=== PATIENT | female | born 1965 | race Caucasian/White ===

== ENCOUNTER → 2020-08-06 10:36 | Outpatient (BNVA) | payer OTHER, SELFPAY | PROVIDERS: Visit Provider Physician Assistant | DX: Z76.89 Persons encountering health services in other specified circumstances (principal) ==

== ENCOUNTER → 2020-08-25 08:21 | Outpatient (BNVA) | payer OTHER, SELFPAY | PROVIDERS: PCP Internal Medicine; Visit Provider Physician Assistant | DX: Z76.89 Persons encountering health services in other specified circumstances (principal) ==

== ENCOUNTER → 2020-09-22 08:22 | Outpatient (BNVA) | payer OTHER, SELFPAY | PROVIDERS: PCP Internal Medicine; Visit Provider Dietitian, Registered | DX: Z76.89 Persons encountering health services in other specified circumstances (principal) ==

== ENCOUNTER 2020-09-22 09:43 | Outpatient (REF) | payer OTHER, SELFPAY ==
[2020-09-22 11:31] LABS: MANUAL DIFF FLAG NO
[2020-09-22 11:38] LABS: Estimated Average Glucose 100 mg/dL; Hemoglobin A1c % 5.1 %
[2020-09-22 11:42] LABS: Basophils Percent Auto 0.5 % (0-2); Eosinophils Absolute Auto 0.1 X10*3/uL (0.0-0.4); Eosinophils Percent Auto 2.3 % (0-4); Hematocrit 44.2 % (37-47); Imm Gran Abs Auto 0.02 X10*3/uL (0.00-0.03); Imm Gran Pct Auto 0.3 % (0.0-0.4); Lymphocytes Percent Auto 33.8 % (20-40); Mean Corpuscular HGB Conc 33.9 g/dl (31.0-35.0); Mean Corpuscular Hemoglobin 29.2 pg (27.0-33.0); Mean Platelet Volume 10.3 fL (9.4-12.3); Monocytes Absolute Auto 0.4 X10*3/uL (0.1-1.2); Monocytes Percent Auto 6.2 % (2-11); Neutrophils Absolute Auto 3.4 X10*3/uL (2.0-8.3); Neutrophils Percent Auto 56.9 % (45-73); Platelet Count 234 X10*3/uL (160-400); Red Blood Count 5.14 X10*6/uL (4.20-5.50); Red Cell Distribution Width 12.6 % (11.0-16.0)
[2020-09-22 12:11] LABS: C Reactive Protein 0.16 mg/dL (< or = 0.50); Cholesterol 207 mg/dL; HDL Cholesterol 46 mg/dL; Iron 82 mcg/dL (30-160); LDL Cholesterol Calculated 127 mg/dl; Percent Iron Saturation 24 % (15-50); Total Iron Binding Capacity 341 mcg/dL (228-428); Triglycerides 173 mg/dL; Unsaturated Iron Binding 259 ug/dL
[2020-09-22 12:12] LABS: Ferritin 359 ng/mL (10-250); TSH reflex Free T4 0.64 mIU/mL (0.32-4.0); Vitamin D 25-OH Total 37.5 ng/mL (>30)
[2020-09-22 12:28] LABS: Folate 10.7 ng/mL (> or = 4.0); Vitamin B12 389 pg/mL (200-900)
[2020-09-23 18:57] LABS: Calcium (PTHI) 9.9 mg/dL (8.6-10.4); PTHI 33 pg/mL (14-64)
[2020-09-25 07:32] LABS: Zinc 100 mcg/dL (60-130)
[2020-09-26 12:03] LABS: Vitamin B1 8 nmol/L (8-30)
[2020-09-28 22:14] LABS: Vitamin A 57 mcg/dL (38-98)
== END 2020-09-22 09:44 | disposition home or self-care (01) ==
LOC: HO.LAB 09:43
PROVIDERS: PCP Internal Medicine; Visit Provider Physician Assistant
DX: E66.3 Overweight (principal); Z98.84 Bariatric surgery status; Z68.35 Body mass index [BMI] 35.0-35.9, adult; M32.9 Systemic lupus erythematosus, unspecified
CPT/HCPCS: 36415; 80061; 82306; 82607; 82728; 82746; 83036; 83525; 83540; 83970; 84425; 84443; 84590; 84630; 85025; 86140

== ENCOUNTER → 2020-10-27 08:34 | Outpatient (BNVA) | payer OTHER, SELFPAY | PROVIDERS: PCP Internal Medicine; Visit Provider Physician Assistant | DX: Z76.89 Persons encountering health services in other specified circumstances (principal) ==

== ENCOUNTER → 2020-11-24 08:26 | Outpatient (BNVA) | payer OTHER, SELFPAY | PROVIDERS: PCP Internal Medicine; Visit Provider Physician Assistant ==

== ENCOUNTER → 2020-11-26 08:56 | Outpatient (BNVA) | payer OTHER, SELFPAY | PROVIDERS: PCP Internal Medicine; Visit Provider Physician Assistant ==

== ENCOUNTER → 2021-01-05 08:55 | Outpatient (BNVA) | payer OTHER, SELFPAY | PROVIDERS: PCP Internal Medicine; Visit Provider Physician Assistant ==

== ENCOUNTER → 2021-01-07 08:13 | Outpatient (BNVA) | payer OTHER, SELFPAY | PROVIDERS: PCP Internal Medicine; Visit Provider Physician Assistant ==

== ENCOUNTER → 2021-01-21 08:13 | Outpatient (BNVA) | payer OTHER, SELFPAY | PROVIDERS: PCP Internal Medicine; Visit Provider Surgery ==

== ENCOUNTER 2021-01-26 11:35 | Outpatient (REF) | payer OTHER, SELFPAY ==
--- NOTE | ~2021-01-26 | XR_ITS ---
EXAMINATION: XR CHEST CLINICAL INFORMATION: Diabetes COMPARISON: None TECHNIQUE: 2 views of the chest were obtained. FINDINGS: The cardiac and mediastinal contours are normal. The lungs are clear. There is no pleural effusion or pneumothorax. There are degenerative changes of the spine. XR/XR chest 2V IMPRESSION: No evidence for acute disease in the chest.
--- NOTE | 2021-01-26 11:44 | ECG_ITS ---
Test Reason : TYPE II DIABETES Blood Pressure : / mmHG Vent. Rate : 064 BPM Atrial Rate : 064 BPM P-R Int : 178 ms QRS Dur : 092 ms QT Int : 416 ms P-R-T Axes : 023 021 026 degrees QTc Int : 429 ms Normal sinus rhythm Normal ECG No previous ECGs available Referred By: Dung Hayes Electronically Signed By:HILARIA ANDREWS MD
[2021-01-26 18:09] LABS: Alanine Aminotransferase 17 U/L (0-31); Albumin Level 4.8 g/dL (3.5-5.0); Alkaline Phosphatase 66 U/L (39-117); Anion Gap 13 (12-20); Aspartate Amino Transferase 14 U/L (5-31); Bilirubin Total 0.6 mg/dL (0.0-1.0); Blood Urea Nitrogen 18 mg/dL (9-16); Calcium 9.8 mg/dL (8.4-10.2); Carbon Dioxide 27 mmol/L (22-29); Chloride 104 mmol/L (96-108); Estimated Glomerular Filt Rate > 60; Glucose Random 115 mg/dL (60-115); Potassium 4.3 mmol/L (3.3-5.1); Sodium 140 mmol/L (135-145); Total Protein 8.1 g/dL (6.5-8.0)
== END 2021-01-26 11:36 | disposition home or self-care (01) ==
LOC: HO.LAB 11:35
PROVIDERS: PCP Internal Medicine; Visit Provider Surgery
DX: E11.9 Type 2 diabetes mellitus without complications (principal); E66.9 Obesity, unspecified; I10 Essential (primary) hypertension
CPT/HCPCS: 36415; 71046; 80053; 93005

== ENCOUNTER 2021-02-02 09:02 | Outpatient (REF) | payer OTHER, SELFPAY ==
[2021-02-03 13:56] LABS: H Pylori Breath Test NOT DETECTED (NOT DETECTED)
== END 2021-02-02 09:03 | disposition home or self-care (01) ==
LOC: HO.LNP 09:02
PROVIDERS: Surgery; PCP Internal Medicine; Visit Provider Physician Assistant
DX: A04.8 Other specified bacterial intestinal infections (principal); E11.9 Type 2 diabetes mellitus without complications; E66.9 Obesity, unspecified; I10 Essential (primary) hypertension
CPT/HCPCS: 83013

== ENCOUNTER 2021-02-16 07:52 | Outpatient (REF) | payer OTHER, SELFPAY ==
--- NOTE | ~2021-02-16 | US_ITS ---
EXAMINATION: US COMPLETE ABDOMEN WITH LIVER ELASTOGRAPHY CLINICAL INFORMATION: Diabetes COMPARISON: None. TECHNIQUE: Real-time imaging of the abdominal viscera. Noninvasive ultrasound liver fibrosis assessment is performed using Gregor ElastPQ point quantification shear wave elastography (pSWE) with a C5-2 MHz transducer. Multiple elastography samples are obtained. FINDINGS: PANCREAS: Normal. ABDOMINAL AORTA: The proximal, middle, and distal aortic segments are normal in caliber. INFERIOR VENA CAVA: Visualized portions are normal. LIVER: The echotexture is slightly increased probably representing fatty infiltration. No focal liver lesion is seen. The liver is normal in size and contour. There is no intrahepatic biliary duct dilatation. The right lobe measures 16.3 cm in length. The left lobe measures 9.5 cm in length. Portal flow is normal/hepatopedal. Shear wave liver elastography median stiffness is 2 m/s (reference: normal median stiffness is 1.3 m/s or less). IQR/median stiffness to assess sampling precision is 0.18 (reference: good quality data set is IQR/median stiffness of 0.15 or less). GALLBLADDER: Surgically removed. COMMON BILE DUCT: Normal in caliber measuring 0.2 cm in diameter. RIGHT KIDNEY: Normal. No hydronephrosis. No renal calculi or focal parenchymal lesions. The kidney measures 11.2 cm in maximum dimension. LEFT KIDNEY: Normal. No hydronephrosis. No renal calculi or focal parenchymal lesions. The kidney measures 10.8 cm in maximum dimension. SPLEEN: Normal. The spleen measures 10.3 cm in maximum dimension. FREE FLUID: None. US/US abdomen comp w elastography IMPRESSION: 1. Impression: Echogenic liver probably representing fatty infiltration. 2. Liver elastography: Limited due to due to sampling error. Liver stiffness is slightly elevated. REFERENCE: Society of Radiologists in Ultrasound Liver Stiffness Thresholds (2020): LIVER STIFFNESS THRESHOLDS: *Liver Stiffness equal or less than 1.3 m/s: High probability of being normal. *Liver Stiffness less than 1.7 m/s: In the absence of other known clinical signs, rules out compensated advanced chronic liver disease. *Liver Stiffness 1.7-2.1 m/s: Suggestive of compensated advanced chronic liver disease but need further test for confirmation. *Liver Stiffness over 2.1 m/s: Rules in compensated advanced chronic liver disease. *Liver Stiffness over 2.4 m/s: Suggestive of clinically significant portal hypertension. QUALITY OF DATA SET: *IQR/Median value equal or less than 0.15 implies a quality data set. *IQR/Median value over 0.15 implies a poor quality data set. SIGNIFICANT CHANGE FROM PRIOR EXAM: Significant change if liver stiffness measurement is 10% or greater from prior exam. OTHER CONSIDERATIONS: The stage of liver fibrosis may be overestimated in the setting of acute hepatitis, liver inflammation, elevated liver function tests, hepatic vascular congestion, obstructive cholestasis, non-fasting state, and infiltrative diseases such as amyloidosis and lymphoma. In some patients with NAFLD, the liver stiffness thresholds for compensated advanced chronic liver disease may be lower. In causes other than viral hepatitis and NAFLD, liver stiffness thresholds are not well established.
--- NOTE | ~2021-02-16 | FL_ITS ---
EXAMINATION: XR GI SERIES CLINICAL INFORMATION: Type 2 diabetes without complication. COMPARISON: None TECHNIQUE: The patient was given effervescent granules mixed with water which were followed by thick and thin preparations of barium for double contrast evaluation. FINDINGS: The esophageal mucosal pattern is normal. No hiatal hernia identified. The gastric rugal folds and duodenal bulb and sweep appear normal. No reflux was elicited during the examination. FLUOROSCOPY TIME: 1.7 minutes. DAP: 22.18 uGy-m2 (microgray-meter squared) FL/FL upper GI series IMPRESSION: Normal study.
== END 2021-02-16 07:53 | disposition home or self-care (01) ==
LOC: HO.US 07:52
PROVIDERS: Visit Provider Surgery
DX: Z01.818 Encounter for other preprocedural examination (principal); E66.01 Morbid (severe) obesity due to excess calories; Z68.32 Body mass index [BMI] 32.0-32.9, adult; K21.9 Gastro-esophageal reflux disease without esophagitis; E11.9 Type 2 diabetes mellitus without complications; I10 Essential (primary) hypertension; Z71.3 Dietary counseling and surveillance
CPT/HCPCS: 74240; 76705; 76981

== ENCOUNTER → 2021-02-25 08:44 | Outpatient (BNVA) | payer OTHER, SELFPAY | PROVIDERS: PCP Internal Medicine; Visit Provider Dietitian, Registered | DX: E66.9 Obesity, unspecified (principal); Z68.32 Body mass index [BMI] 32.0-32.9, adult | CPT/HCPCS: 97803 ==

== ENCOUNTER → 2021-03-09 08:12 | Outpatient (BNVA) | payer OTHER, SELFPAY | PROVIDERS: PCP Internal Medicine; Visit Provider Surgery ==

== ENCOUNTER → 2021-04-07 07:51 | Outpatient (BNVA) | payer OTHER, SELFPAY | PROVIDERS: PCP Internal Medicine; Visit Provider Surgery ==

== ENCOUNTER → 2021-04-08 12:55 | Outpatient (BNVA) | payer OTHER, SELFPAY | PROVIDERS: PCP Internal Medicine; Referring Provider Internal Medicine; Visit Provider Physician Assistant ==

== ENCOUNTER 2021-04-23 08:26 | Outpatient (REF) | payer OTHER, SELFPAY ==
[2021-04-23 09:30] LABS: Free T4 (Free Thyroxine) 0.92 ng/dL (0.71-1.85); Thyroid Stimulating Hormone 0.35 uIU/mL (0.32-4.0)
[2021-04-24 03:37] LABS: Triiodothyronine T3 Free 2.5 pg/mL (2.3-4.2); Triiodothyronine T3 Total 88 ng/dL (76-181)
[2021-04-26 22:02] LABS: Thyroglobulin Antibody <1 IU/mL (<=1); Thyroglobulin Level 12.8 ng/mL
[2021-04-27 09:42] LABS: Thyroglobulin Antibodies <1 IU/mL (< or = 1); Thyroid Peroxidase Antibodies <1 IU/mL (<9)
[2021-04-27 12:06] LABS: Thyrotropin Receptor Antibody <1.00 IU/L (<=2.00)
[2021-04-27 15:27] LABS: Thyroid Stimulating Immunoglob <89 % baseline (<140)
[2021-05-02 03:12] LABS: Thyroxine Binding Globulin 29.2 mcg/mL (13.5-30.9)
== END 2021-04-23 08:27 | disposition home or self-care (01) ==
LOC: HO.LAB 08:26
PROVIDERS: PCP Internal Medicine; Visit Provider Surgery
DX: E05.90 Thyrotoxicosis, unspecified without thyrotoxic crisis or storm (principal)
CPT/HCPCS: 36415; 83520; 84432; 84439; 84442; 84443; 84445; 84480; 84481; 86376; 86800

== ENCOUNTER 2021-04-26 07:04 | Inpatient (IN) | payer OTHER, SELFPAY ==
[2021-04-08 11:53] VITALS: BP 163/84; PULSE 78; RESP 20; O2SAT 99; BMI 31.6
--- NOTE | 2021-04-08 12:40 | P.CONAN_ITS ---
Documented by User: Susan Redmond 04/22/21 13:30 HPI - Anesthesia Eval Consult details Narrative: 56yo F for Gastric Sleeve PMFSH Active Problems Active Problems: All Active Problems (Updated 04/08/21 @ 12:27 by Stella Noble) Vascular insufficiency (Acute) BMI over 35 (Acute) Adjustment disorder, unspecified (Acute) BMI 32.0-32.9,adult (Acute) BMI 31.0-31.9,adult (Acute) Obesity (Acute) Hypertension (Acute) Diabetes mellitus (Acute) Past Medical History Medical History COVID-19 vaccine series completed Diabetes mellitus Hypertension Obesity Family History Family History Father AAA (abdominal aortic aneurysm) Stroke Aortic valve replaced Mother Narcolepsy Lung cancer Breast cancer DM (diabetes mellitus) Sister HTN (hypertension) Obese Sister DM (diabetes mellitus) HTN (hypertension) Obese Family history of problems with anesthesia: No Surgical History Surgical History History of surgery on right wrist Hx laparoscopic cholecystectomy History of Problems with Anesthesia: No Social History Social History Are you a primary career technical counselor to a significant other at home: No Do you presently have visiting nurse or other home services: No Alcohol intake: current Patient Tobacco Use Status: Former Tobacco user Quit Date: 2008 Tobacco use type: Cigarette Narrative Narrative: No recent illness. >4 mets with regular exercise - 4 miles Meds Allergies Allergy/AdvReac Type Severity Reaction Status Date / Time No Known Allergies Allergy Verified 04/08/21 15:33 Home Medications Medication Instructions Recorded Confirmed Last Taken Type cholecalciferol (vitamin D3) 25 25 mcg PO DAILY 08/06/20 04/08/21 Unknown History mcg (1,000 unit) capsule lisinopril 20 mg tablet 20 mg PO DAILY 04/07/21 04/08/21 Unknown History Exam Exam Date and Time: April 08, 2021 1240 Height,Weight and Vital Signs: Height 5 ft 8 in Weight 94.347 kg Last Vital Signs Pulse 78 04/08/21 11:53 Resp 20 04/08/21 11:53 BP 163/84 H 04/08/21 11:53 Pulse Ox 99 04/08/21 11:53 Airway Mallampati Class: I TM Dist: >3cm Neck ROM: Full Denture: Upper Loose/Missing/Broken Teeth: Yes (Lower molars) Heart: RRR Lungs: CTAB Assessment and Plan Assessment Anesthesia Assessment: Anesthesia Plan Discussed and PAT Visit Documented by User: Cami Winston 04/26/21 07:29 PMFSH Past Medical History Medical History COVID-19 vaccine series completed Diabetes mellitus Hypertension Obesity Family History Family History Father AAA (abdominal aortic aneurysm) Stroke Aortic valve replaced Mother Narcolepsy Lung cancer Breast cancer DM (diabetes mellitus) Sister HTN (hypertension) Obese Sister DM (diabetes mellitus) HTN (hypertension) Obese Surgical History Surgical History History of surgery on right wrist Hx laparoscopic cholecystectomy Social History Social History Are you a primary career technical counselor to a significant other at home: No Do you presently have visiting nurse or other home services: No Alcohol intake: current Patient Tobacco Use Status: Former Tobacco user Quit Date: 2008 Tobacco use type: Cigarette Meds Allergies Allergy/AdvReac Type Severity Reaction Status Date / Time No Known Allergies Allergy Verified 04/08/21 15:33 Home Medications Medication Instructions Recorded Confirmed Last Taken Type cholecalciferol (vitamin D3) 25 25 mcg PO DAILY 08/06/20 04/08/21 Unknown History mcg (1,000 unit) capsule lisinopril 20 mg tablet 20 mg PO DAILY 04/07/21 04/08/21 Unknown History Exam Height,Weight and Vital Signs: Vital Signs Temp Pulse Resp BP Pulse Ox 04/26/21 06:25 97.2 F 67 18 139/70 97 Pertinent Lab Results Pertinent Lab Results: Lab Results 04/21/21 04/21/21 04/21/21 Range/Units 09:50 09:50 09:50 WBC 5.1 (4.8-10.8) X10*3/uL RBC 4.76 (4.20-5.50) X10*6/uL Hgb 14.0 (12.0-16.0) g/dl Hct 40.6 (37-47) % MCV 85.3 (80-98) fL MCH 29.4 (27.0-33.0) pg MCHC 34.5 (31.0-35.0) g/dl RDW 13.2 (11.0-16.0) % Plt Count 196 (160-400) X10*3/uL MPV 9.8 (9.4-12.3) fL Immature Gran % (Auto) 0.2 (0.0-0.4) % Neut % (Auto) 59.1 (45-73) % Lymph % (Auto) 30.8 (20-40) % Garvin % (Auto) 8.1 (2-11) % Eos % (Auto) 1.4 (0-4) % Baso % (Auto) 0.4 (0-2) % Lymph # (Auto) 1.6 (1.2-4.9) X10*3/uL Garvin # (Auto) 0.4 (0.1-1.2) X10*3/uL Eos # (Auto) 0.1 (0.0-0.4) X10*3/uL Baso # (Auto) 0.0 (0.0-0.2) X10*3/uL Abs Immat Gran (auto) 0.01 (0.00-0.03) X10*3/uL Absolute Neuts (auto) 3.0 (2.0-8.3) X10*3/uL Absolute Nucleated RBC 0.000 (0.0-0.012) X10*3/uL Nucleated RBC % (auto) 0.0 (0.0-0.2) /100WBC PT 13.5 H (10.8-13.0) SEC INR 1.1 (0.9-1.1) APTT 35.9 (24.1-38.0) SEC Sodium 140 (135-145) mmol/L Potassium 5.0 (3.3-5.1) mmol/L Chloride 105 (96-108) mmol/L Carbon Dioxide 28 (22-29) mmol/L Anion Gap 12 (12-20) BUN 13 (9-16) mg/dL Creatinine 0.73 (0.5-1.4) mg/dL Estim Creat Clear Calc 105.7 Estimated GFR > 60 Random Glucose 92 (60-115) mg/dL Estimat Average Glucose mg/dL Hemoglobin A1c % % Total Insulin uIU/mL Calcium 9.5 (8.4-10.2) mg/dL Total Bilirubin 1.1 H (0.0-1.0) mg/dL AST 17 (5-31) U/L ALT 13 (0-31) U/L Alkaline Phosphatase 51 D (39-117) U/L C-Reactive Protein 0.09 (< or = 0.50) mg/dL Total Protein 6.7 (6.5-8.0) g/dL Albumin 4.1 (3.5-5.0) g/dL Triglycerides 61 mg/dL Cholesterol 150 D mg/dL LDL Cholesterol, Calc 93 mg/dl HDL Cholesterol 45 mg/dL TSH 0.22 L (0.32-4.0) uIU/mL Free T4 0.93 (0.71-1.85) ng/dL Blood Type Antibody Screen 04/21/21 04/21/21 04/21/21 Range/Units 09:50 09:50 09:50 WBC (4.8-10.8) X10*3/uL RBC (4.20-5.50) X10*6/uL Hgb (12.0-16.0) g/dl Hct (37-47) % MCV (80-98) fL MCH (27.0-33.0) pg MCHC (31.0-35.0) g/dl RDW (11.0-16.0) % Plt Count (160-400) X10*3/uL MPV (9.4-12.3) fL Immature Gran % (Auto) (0.0-0.4) % Neut % (Auto) (45-73) % Lymph % (Auto) (20-40) % Garvin % (Auto) (2-11) % Eos % (Auto) (0-4) % Baso % (Auto) (0-2) % Lymph # (Auto) (1.2-4.9) X10*3/uL Garvin # (Auto) (0.1-1.2) X10*3/uL Eos # (Auto) (0.0-0.4) X10*3/uL Baso # (Auto) (0.0-0.2) X10*3/uL Abs Immat Gran (auto) (0.00-0.03) X10*3/uL Absolute Neuts (auto) (2.0-8.3) X10*3/uL Absolute Nucleated RBC (0.0-0.012) X10*3/uL Nucleated RBC % (auto) (0.0-0.2) /100WBC PT (10.8-13.0) SEC INR (0.9-1.1) APTT (24.1-38.0) SEC Sodium (135-145) mmol/L Potassium (3.3-5.1) mmol/L Chloride (96-108) mmol/L Carbon Dioxide (22-29) mmol/L Anion Gap (12-20) BUN (9-16) mg/dL Creatinine (0.5-1.4) mg/dL Estim Creat Clear Calc Estimated GFR Random Glucose (60-115) mg/dL Estimat Average Glucose 85 mg/dL Hemoglobin A1c % 4.6 % Total Insulin 3.9 uIU/mL Calcium (8.4-10.2) mg/dL Total Bilirubin (0.0-1.0) mg/dL AST (5-31) U/L ALT (0-31) U/L Alkaline Phosphatase (39-117) U/L C-Reactive Protein (< or = 0.50) mg/dL Total Protein (6.5-8.0) g/dL Albumin (3.5-5.0) g/dL Triglycerides mg/dL Cholesterol mg/dL LDL Cholesterol, Calc mg/dl HDL Cholesterol mg/dL TSH (0.32-4.0) uIU/mL Free T4 (0.71-1.85) ng/dL Blood Type O Positive Antibody Screen NEGATIVE Laboratory Results - last 24 hr 04/26/21 06:10 COVID-19 ([facility]) Negative COVID-19 Clin Com See Note CXR (: FINDINGS: The cardiac and mediastinal contours are normal. The lungs are clear. There is no pleural effusion or pneumothorax. There are degenerative changes of the spine. EKG (01/26/21): Normal sinus rhythm 64.Normal ECG Airway Mallampati Class: I TM Dist: >3cm Neck ROM: Full Denture: Upper Loose/Missing/Broken Teeth: Yes (Molars bottom) Heart: RRR Lungs: CTAB Assessment and Plan Assessment Anesthesia Assessment: Anesthesia Plan Discussed and Chart Reviewed Final Anesthetic Review NPO: Yes ASA Class: III Final Preanesthetic Review: No Changes in Pt Med Stat, Meds/Allgs Chart Reviewed, Consent Obtained/Reviewed and Anes Risks/Benef Reviewed Patient Risk: Intermediate Procedure Risk: Intermediate Assessment/Block/Sedation in SS: Assess/Block/Sedation-SS Anesthetic Plan Anesthetic Plan: GA Disposition: Inp. Admit - Standard Bed
[2021-04-21 10:26] LABS: MANUAL DIFF FLAG NO
[2021-04-21 10:31] LABS: Basophils Percent Auto 0.4 % (0-2); Eosinophils Absolute Auto 0.1 X10*3/uL (0.0-0.4); Eosinophils Percent Auto 1.4 % (0-4); Hematocrit 40.6 % (37-47); Imm Gran Abs Auto 0.01 X10*3/uL (0.00-0.03); Imm Gran Pct Auto 0.2 % (0.0-0.4); Lymphocytes Absolute Auto 1.6 X10*3/uL (1.2-4.9); Lymphocytes Percent Auto 30.8 % (20-40); Mean Corpuscular HGB Conc 34.5 g/dl (31.0-35.0); Mean Corpuscular Hemoglobin 29.4 pg (27.0-33.0); Mean Corpuscular Volume 85.3 fL (80-98); Mean Platelet Volume 9.8 fL (9.4-12.3); Monocytes Absolute Auto 0.4 X10*3/uL (0.1-1.2); Monocytes Percent Auto 8.1 % (2-11); Neutrophils Percent Auto 59.1 % (45-73); Platelet Count 196 X10*3/uL (160-400); Red Blood Count 4.76 X10*6/uL (4.20-5.50); Red Cell Distribution Width 13.2 % (11.0-16.0); White Blood Count 5.1 X10*3/uL (4.8-10.8)
[2021-04-21 10:35] LABS: INTERNATIONAL NORM RATIO 1.1 (0.9-1.1); Prothrombin Time 13.5 SEC (10.8-13.0)
[2021-04-21 10:38] LABS: Partial Thromboplastin Time 35.9 SEC (24.1-38.0)
[2021-04-21 11:01] LABS: Estimated Average Glucose 85 mg/dL; Hemoglobin A1c % 4.6 %
[2021-04-21 11:23] LABS: Alanine Aminotransferase 13 U/L (0-31); Albumin Level 4.1 g/dL (3.5-5.0); Alkaline Phosphatase 51 U/L (39-117); Anion Gap 12 (12-20); Aspartate Amino Transferase 17 U/L (5-31); Bilirubin Total 1.1 mg/dL (0.0-1.0); Blood Urea Nitrogen 13 mg/dL (9-16); C Reactive Protein 0.09 mg/dL (< or = 0.50); Calcium 9.5 mg/dL (8.4-10.2); Carbon Dioxide 28 mmol/L (22-29); Chloride 105 mmol/L (96-108); Cholesterol 150 mg/dL; Creatinine Clr Calc Pharmacy 105.7; Estimated Glomerular Filt Rate > 60; Glucose Random 92 mg/dL (60-115); HDL Cholesterol 45 mg/dL; LDL Cholesterol Calculated 93 mg/dl; Sodium 140 mmol/L (135-145); Total Protein 6.7 g/dL (6.5-8.0); Triglycerides 61 mg/dL
[2021-04-21 11:42] LABS: TSH reflex Free T4 0.22 uIU/mL (0.32-4.0)
[2021-04-21 12:17] LABS: Free T4 (Free Thyroxine) 0.93 ng/dL (0.71-1.85)
[2021-04-22 09:07] LABS: Insulin Level Total 3.9 uIU/mL
--- NOTE | 2021-04-25 07:31 | MHC.SHP ---
Pre-Procedural Eval Section A Date of Service: 04/25/21 The patient is an INPATIENT: Yes The History & Physical has been completed within 30 days and I have reviewed it.: Yes Section B Chief Complaint: obesity Details of Present Illness: obesity Relevant Family History (Specify if Yes): No Relevant Social History: None Present Medications: see Short Stay Collaborative assessment Medical History: No relevant PMH History of Previous Operations: No relevant previous surgery Allergies: Allergies Allergy/AdvReac Type Severity Reaction Status Date / Time No Known Allergies Allergy Verified 04/08/21 15:33 Review of Systems Sugical H&P ROS: Negative: Constitution, Cardiovascular, Respiratory, Neurological, Psychiatric, Hem-Onc, Allergic/Immunologic, Gastrointestinal, Genitourinary, Musculoskeletal, Integumentary, Endocrine and Eyes/Ears/Nose/Throat Exam Surgical H&P Exam: Normal: HEENT, Normal: Heart, Normal: Lungs, Normal: Extremities, Normal: Abdomen, Normal: Skin and Normal: Neurological Plan Diagnosis/Plan: Unchanged I have reviewed the history and physical and performed a pertinent physical examination on my patient. No changes have occurred unless specified.
[2021-04-26] VITALS (12 sets, daily range): BP systolic 139–168; BP diastolic 57–78; PULSE 60–75; RESP 12–20; TEMP 36.1–36.7; O2SAT 97–100
[2021-04-26] MEDS: Lactated Ringers 1,000 ML 100 ML IVCONT (06:48)
[2021-04-26 07:14] LABS: COVID-19 Test Negative (Negative); IDNOW Serial# 9DD0AD1C
[2021-04-26 08:09] LABS: Glucose, Whole Blood 74 mg/dL (60-115)
--- NOTE | 2021-04-26 09:58 | P.DS_ITS ---
DS: Providers Provider Date of Service: 04/27/21 Date of admission: 04/26/21 07:04 Primary care physician: Danna Camarena MD DS: Medications Discharge Medications Home Medications: Home Medications Medication Instructions Recorded Confirmed cholecalciferol (vitamin D3) 25 25 mcg PO DAILY 08/06/20 04/08/21 mcg (1,000 unit) capsule lisinopril 20 mg tablet 20 mg PO DAILY 04/07/21 04/08/21 Previous Rx's Medication Instructions Recorded ondansetron HCl 4 mg tablet 4 mg PO Q12H #20 tab 04/07/21 pantoprazole 40 mg tablet,delayed 40 mg PO DAILY #30 tab 04/07/21 release polyethylene glycol 3350 17 gram 17 g PO DAILY #14 ea 04/07/21 oral powder packet sucralfate 100 mg/mL oral 10 ml PO BID #400 ml 04/07/21 suspension DS: Summary Time Spent with Patient Time attestation: ADMITTING DIAGNOSIS: morbid obesity, HTN, DM DISCHARGE DIAGNOSIS: same, s/p laparoscopic sleeve gastrectomy PAST SURGICAL HISTORY: lap cholectstectomy PROCEDURE: upper endoscopy, laparoscopic sleeve gastrectomy DISCHARGE SUMMARY: History of Present Illness: The patient is a 56 year-old woman with a BMI of 36.5 kg/m2 and associated co- morbidities as described above. The patient had extensive work-up,lost 27.8 lbs preoperatively and was electively scheduled for laparoscopic, possible open sleeve gastrectomy and gastropexy. Risks and complications of the surgery were discussed with the patient in advance, particularly the possibility of , pulmonary embolism, anastomotic leak, bleeding, bowel injury, GERD, cardiac, renal or pulmonary complications. The patient understood all the risks and was in agreement with the surgical plan. Hospital Course: The patient underwent an uneventful laparoscopic sleeve gastrectomy with gastropexy on the day of admission. Postoperatively, the patient was transferred to the surgical floor. The patient was on IV Acetaminophen and IV dilaudid for pain control. Patient was started on bariatric phase 1 diet POD #0. On postoperative day one, the patient was feeling well without nausea, vomiting, fevers, or tachycardia. The patient had some mild incisional pain. The abdomen was soft. On the morning of postoperative day one, the patient was continued on 1 ounce of water or ice every half hour. During the first day, the patient did fairly well, having some incisional pain, but able to ambulate adequately and to tolerate liquids well. Since the patient is doing well, we decided that the patient was ready to be discharged. The patient was given instructions to follow-up with me next week and to call my office for any fever over 101, persistent abdominal pain, nausea, vomiting, GERD, symptoms of DVT such as calf tenderness, or leg swelling, or pulmonary embolism such as chest pain or shortness of breath. The patient was also instructed to drink 40-60 ounces of liquids per day using the 1-ounce cups. The patient was given prescription for Tylenol for pain, Zofran prn for nausea, and pantoprazole and carafate. The patient was encouraged to ambulate and use the incentive spirometer. The patient was allowed to shower, but no baths, and encouraged to stay active at home. All of these instructions were given to the patient personally. All questions were answered and the patient understood all instructions, the instructions were also given to the patient in print. Total time spent providing and/or coordinating discharge services: 25 Discharge coordination time: Less than 30 minutes Quality: Stroke Does the patient have a stroke diagnosis?: No Physical Exam Vital Signs: Vital Signs: Last Vital Signs Temp 97.1 F 04/26/21 09:45 Pulse 60 04/26/21 09:55 Resp 12 04/26/21 09:55 BP 144/70 H 04/26/21 09:55 Pulse Ox 100 04/26/21 09:55 Body Mass Index 31.6 DS: Data Data Completed and Pending Labs on day of discharge: Laboratory Results - last 24 hr 04/26/21 04/26/21 06:10 06:28 POC Glucose 74 COVID-19 ([facility]) Negative COVID-19 Clin Com See Note Discharge Plan Discharge Anticipated Discharge Date/Time: 04/27/21 10:55 Patient Disposition: Home, Self-Care Discharge Diagnosis: s/p sleeve gastrectomy Referrals: Danna Camarena MD [Primary Care Provider] - 1 Week Discharge Medications: Continued cholecalciferol (vitamin D3) 25 mcg (1,000 unit) capsule 25 mcg PO DAILY RF: 0 lisinopril 20 mg tablet 20 mg PO DAILY RF: 0 pantoprazole 40 mg tablet,delayed release (DR/EC) 40 mg PO DAILY Qty: 30 RF: 2 sucralfate 100 mg/mL suspension 10 ml PO BID Qty: 400 RF: 2 ondansetron HCl [Zofran] 4 mg tablet 4 mg PO Q12H Qty: 20 RF: 0 Discontinued polyethylene glycol 3350 [Miralax] 17 gram powder in packet 17 g PO DAILY Qty: 14 RF: 0 Discharge Orders: Discharge Order (Routine); Ordered 04/27/21 Ordered By: Dung Hayes Activity on Discharge: No heavy lifting Stand Alone Forms: Patient Portal Discharge page Activity Restrictions/Additional Instructions: No tub baths, sex or returning to work until discussed at first post op appointment. No exercise, alcohol, tobacco or illegal drug use. Continue to use incentive spirometer hourly while awake. Walk in home for 5- 10 minutes every 2 hours during the first week. Continue phase 1 diet today and start phase 2 diet tomorrow morning. Follow all instructions in the bariatric handbook and call with any questions. The patient's medical history has been reviewed and they are considered low risk for post op DVT and therefore DVT prophylaxis is not considered necessary. Travel after surgery was reviewed. The patient has not disclosed any travel plans during the first 30 days after surgery and they have been advised that within the first 30 days after surgery any bus, plane, train or car travel over 2 hours in duration is contraindicated due to the possibility of developing blood clots from immobility. Any travel, needs to include periods of ambulation of 10 minutes in duration every 2 hours. The patient was instructed to discuss any plans for travel during this period with their bariatric surgeon. Care Plan Goals: weight loss Health Concerns: obesity Plan of Treatment: see discharge instructions Assessment: stable, pod # 1 s/p sleeve gastrecctomy Discharge Date/Time: 04/27/21 08:45
--- NOTE | 2021-04-26 09:58 | PM.OP ---
Brief Operative Note Date of Service: 04/26/21 Pre-op diagnosis: Severe obesity and comorbidities (see below) Post-op diagnosis: same Procedure: INITIAL PATIENT BMI ON PRESENTATION AT OUR OFFICE: 36.5 kg/m2 LAST BMI BEFORE SURGERY: 31 kg/m2 COMORBIDITIES: hypertension, non-insulin dependent diabetes, venous insufficiency, liver steatosis, liver fibrosis The patient participated in an intensive weekly lifestyle intervention and exercise program during which the patient has lost between the initial office visit and the last preoperative visit 28.4lbs, or 12.19% of initial actual body weight. The patient met the BMI-criteria for bariatric surgery based on the BMI on initial presentation. The patient should not be penalized for achieving such weight loss because it is not sustainable long-term without surgical intervention and it was achieved in preparation for bariatric surgery under my direction and based on my published research ([email or web address] and [email or web address]) that a 10% preoperative weight loss improves long-term weight loss after surgery and reduces perioperative complications. Insurance carriers such as [facility] have endorsed my recommendations and have included in their policies criteria to include a 10% preoperative weight loss requirement. PROCEDURE: Esophago-gastroscopy, laparoscopic lysis of adhesions, laparoscopic sleeve gastrectomy and laparoscopic gastropexy INDICATIONS: This is a 56 year-old female who was electively scheduled for laparoscopic, possibly open sleeve gastrectomy. The risks and complications of the procedure were discussed with the patient in advance, particularly the possibility of ; pulmonary embolism; staple line leak; bleeding; GERD; cardiac, pulmonary, or renal complications; as well as long-term problems such as insufficient weight loss, vitamin deficiency, strictures, or ulcers. The patient understood all the risks, and was in agreement to proceed with surgery. DESCRIPTION OF PROCEDURE: After informed consent was obtained from the patient, the patient was given preoperative antibiotics, and was transferred to the operating room. After successful induction of general anesthesia, pneumatic compressive devices were placed on both lower extremities. An upper endoscopy was performed next. The oropharynx and esophagus appeared to be within normal limits. There was a diaphragmatic hernia present of moderate size consistent with the findings of the preoperative upper GI. The stomach was entered. Then after all fluid and air were suctioned and the stomach was fully decompressed, the scope was withdrawn and secured in the mid esophagus. The patient was then prepped and draped in the usual sterile manner, and abdominal access was established at the right upper quadrant with the Del technique. A 12 mm blunt port was inserted, and the abdomen was insufflated with CO2 to a pressure of 15 mmHg. Under direct visualization, additional ports were placed, specifically two 5 mm Versi-step ports to the left upper quadrant, and a 5 mm Versi-Step port to the right upper quadrant. 1% lidocained plan was used to infiltrate all port sites as well as all fascia defects. Using the EndoClose suture passer device, we placed a #1 Polysorb tie across the falciform ligament in order to retract it up against the abdominal wall and prevent injury of the ligament with our instruments during the procedure. Following that, the patient was placed in a steep reverse Trendelenburg position. An additional 5 mm port was placed to the right flank for the Mediflex retractor that was used to retract the left lobe of the liver. The gastro-esophageal fat pad was opened with the ultrasonic device (Thunderbeat, Olympus) and the anterior esophagus and hiatus were exposed. The angle of His was opened with the ultrasonic device the fundus of the stomach from any diaphragmatic and splenic attachments. I then opened the gastrocolic ligament between the transverse colon and the greater curvature of the stomach with the ultrasonic device to enter the lesser sac and facilitate the ligation of the short gastric vessels. I started at a mid-point along the greater curvature and using the Thunderbeat, all short gastric vessels were divided all the way to the angle of His until the left denise was completely dissected at its entirety. I then divided the gastro-colic ligament distally to a distance of about 3-4 cm proximal to the esophagus. There were extensive congenital adhesions between the pancreas and posterior gastric wall. Those were lysed completely with the ultrasonic device. Adhesiolysis took approximately 45 min to complete. The stomach was then divided transversely with one Endo LOS-45 purple loads, two LOS-45 orange loads and four LOS-60 articulating orange loads using the AEON stapler and loads. Every effort was made that the gastric sleeve had a tubular shape and an even caliber throughout. Once the sleeve resection was completed, the staple line of the gastric sleeve was reinforced with Hemoclips. The resected stomach was retrieved without difficulty from the Del port. A gastropexy was then performed in order to prevent postoperative GERD and partial gastric volvulus. Several interrupted 2.0 Surgidac sutures were placed between the sleeve's staple line and the previously divided greater omentum and gastro-colic ligament using the Endo-Stitch device. An upper endoscopy was performed. There was no narrowing at the GE junction. The scope was easily advanced all the way to the pylorus which was clearly visualized. There was no narrowing anywhere and the sleeve's caliber was even throughout. The sleeve's staple line was inspected and there was no evidence of ischemia, bleeding or dehiscence. At that point the gastroscope was withdrawn from the patient?s mouth while we were decompressing the bowel and the stomach from any remaining air. I looked into the lesser sac to see how the sleeve was situating and it was situating well. There was no bleeding from the staple line, spleen, or short gastric vessels. The Mediflex retractor was removed, and the undersurface of the liver was inspected and there was no bleeding. The patient was placed in supine position. I closed the fascial defect of the 12 mm port site with a figure of eight #1 Polysorb suture. Then 100 cc 0.25 % Marcaine plain with 10 mg of Dexamethasone were used to infiltrate the fascial closure as well as all skin incisions. At this point, the abdomen was deflated, all ports were removed under direct vision, and no bleeding was noted from any of the port sites. The skin incisions were irrigated with saline and were closed with 4-0 absorbable monofilament sutures. Steri-Strips and OpSites were used to cover all incisions. The patient was extubated and was transferred in stable condition to the recovery room for further care. I was present and performed all de la vega parts of the procedure. Ms. Jeronimoson was the academic affairs assistant. There were no residents to assist with this case. Escobar Hayes MD, PhD, FACS Surgeon: Dung Hayes MD Anesthesia: GETA, local and other (TAP block) Was an Pool Lifeguard used for this Procedure?: Yes Pool Lifeguard: Oralia Haines Estimated blood loss (mL): 10 IV fluids (mL): 2,000 Urine output (mL): 0 (No Hernandez to record) Pathology: other (Stomach) Condition: stable Disposition: PACU
--- NOTE | 2021-04-26 10:06 | PM.PNGS ---
Subjective Subjective Date of Service: 04/27/21 Interval history: Patient had mild incisional pain but was able to ambulate and use the incentive spirometer. Is tolerating phase 1 bariatric diet. Physical Exam Vital Signs: Vital Signs: Last Vital Signs Temp 97.1 F 04/26/21 09:45 Pulse 60 04/26/21 10:00 Resp 14 04/26/21 10:00 BP 153/72 H 04/26/21 10:00 Pulse Ox 100 04/26/21 10:00 Body Mass Index 31.6 GI: Inspection: Yes normal to inspection, Yes incision (clean, dry and intact) and Yes obesity Extrem: Right lower extremity: normal to inspection (no calf tenderness) Left lower extremity: normal to inspection (no calf tenderness) Progress Note: A&P Assessment and plan (1) Obesity: Status: Acute (2) BMI 31.0-31.9,adult: Status: Acute (3) Hypertension: Status: Acute (4) Diabetes mellitus: Status: Acute (5) S/P laparoscopic sleeve gastrectomy: Status: Acute Assessment and Plan: s/p laparoscopic sleeve gastrectomy, gastropexy and lysis of adhesions Doing well and tolerating diet. Check am labs. If OK, will d/c home today (6) Steatosis, liver: Status: Acute (7) Liver fibrosis: Status: Acute (8) Congenital intra-abdominal adhesions: Status: Acute (9) Venous insufficiency: Status: Acute Fall Risk Details Current Medications: Current Medications Generic Name Dose Route Start Last Admin Trade Name Freq PRN Reason Stop Dose Admin Fentanyl 25 mcg 04/26/21 07:31 Fentanyl Citrate/Pf 100 Mcg/2 Ml Vial IVPUSH Q5M PRN Pain, Moderate (Pain Scale 4-6 Hydromorphone HCl 0.25 mg 04/26/21 07:31 Hydromorphone Hcl 0.5 Mg/0.5 Ml Syringe IVPUSH Q5M PRN Pain, Severe (Pain Scale 7-10) Lactated Ringer's 1,000 mls @ 100 mls/hr 04/26/21 06:15 04/26/21 06:48 Lr IVCONT 100 mls/hr .Q10H SAIMA Administration Promethazine HCl 6.25 mg/ 50.25 mls @ 201 mls/hr 04/26/21 07:31 Sodium Chloride IV ONCE PRN Nausea and Vomiting Ondansetron HCl 4 mg 04/26/21 07:31 Ondansetron Hcl 4 Mg/2 Ml Vial IVPUSH ONCE PRN Nausea and Vomiting Time Spent With Patient Time: Total time spent is greater than 50% in coordination of care (as documented) at patient's floor/unit and/or counseling patient: Time with patient: less than 15 minutes Procedures Date of Service Date of Service: 04/27/21 Quality Stroke Does the patient have a stroke diagnosis?: No VTE Prior VTE?: No VTE Risk Level:: Surgical - moderate VTE Device Contraindication: N/A - Device Ordered VTE Drug Contraindication: Treatment Not Indicated
[2021-04-26] MEDS: Famotidine/PF 20 MG/2 ML VIAL IVPUSH ×2 (10:45→21:06)
[2021-04-26] MEDS: Metoclopramide HCl 10 MG/2 ML VIAL IVPUSH (11:05)
[2021-04-26] MEDS: lisinopriL 20 MG TABLET PO (11:51)
[2021-04-26] MEDS: Lactated Ringers 1,000 ML 125 ML IVCONT ×2 (11:53→19:30)
[2021-04-26 12:00] LABS: Hematocrit 42.5 % (37-47); Hemoglobin 14.4 g/dl (12.0-16.0)
[2021-04-26 12:28] LABS: Anion Gap 17 (12-20); Blood Urea Nitrogen 10 mg/dL (9-16); Calcium 8.7 mg/dL (8.4-10.2); Carbon Dioxide 21 mmol/L (22-29); Chloride 106 mmol/L (96-108); Creatinine Clr Calc Pharmacy 94.2; Estimated Glomerular Filt Rate > 60; Glucose Random 154 mg/dL (60-115); Potassium 4.2 mmol/L (3.3-5.1); Sodium 140 mmol/L (135-145)
[2021-04-26] MEDS: ceFAZolin Sodium/Dextrose,Iso 2 GM/50 ML PIGGYBACK IV (13:58)
[2021-04-26] MEDS: ondansetron HCL 4 MG/2 ML VIAL IVPUSH (18:01)
[2021-04-26] MEDS: 0.9 % Sodium Chloride Flush 3 ML SYRINGE IVFLUSH (21:06)
[2021-04-27] MEDS: ondansetron HCL 4 MG/2 ML VIAL IVPUSH (03:01)
[2021-04-27] MEDS: Lactated Ringers 1,000 ML 125 ML IVCONT (03:01)
[2021-04-27 04:00] VITALS: BP 148/74; PULSE 69; RESP 18; TEMP 36.7; O2SAT 98
[2021-04-27 06:32] LABS: MANUAL DIFF FLAG NO
[2021-04-27 06:50] LABS: Basophils Percent Auto 0.2 % (0-2); Eosinophils Percent Auto 0.1 % (0-4); Hematocrit 37.1 % (37-47); Hemoglobin 12.7 g/dl (12.0-16.0); Imm Gran Abs Auto 0.02 X10*3/uL (0.00-0.03); Imm Gran Pct Auto 0.2 % (0.0-0.4); Lymphocytes Absolute Auto 1.7 X10*3/uL (1.2-4.9); Lymphocytes Percent Auto 18.2 % (20-40); Mean Corpuscular HGB Conc 34.2 g/dl (31.0-35.0); Mean Corpuscular Hemoglobin 29.7 pg (27.0-33.0); Mean Corpuscular Volume 86.7 fL (80-98); Mean Platelet Volume 10.2 fL (9.4-12.3); Monocytes Absolute Auto 0.8 X10*3/uL (0.1-1.2); Monocytes Percent Auto 8.8 % (2-11); Neutrophils Absolute Auto 6.8 X10*3/uL (2.0-8.3); Neutrophils Percent Auto 72.5 % (45-73); Platelet Count 204 X10*3/uL (160-400); Red Blood Count 4.28 X10*6/uL (4.20-5.50); Red Cell Distribution Width 13.6 % (11.0-16.0); White Blood Count 9.3 X10*3/uL (4.8-10.8)
[2021-04-27 07:09] LABS: Anion Gap 16 (12-20); Blood Urea Nitrogen 9 mg/dL (9-16); Carbon Dioxide 25 mmol/L (22-29); Chloride 104 mmol/L (96-108); Creatinine Clr Calc Pharmacy 104.3; Estimated Glomerular Filt Rate > 60; Glucose Random 79 mg/dL (60-115); Potassium 4.6 mmol/L (3.3-5.1); Sodium 140 mmol/L (135-145)
[2021-04-27 07:13] VITALS: BP 119/71; PULSE 87; RESP 18; TEMP 36.1; O2SAT 100
[2021-04-27] MEDS: Famotidine/PF 20 MG/2 ML VIAL IVPUSH (07:14)
[2021-04-27] MEDS: lisinopriL 20 MG TABLET PO (07:14)
--- NOTE | 2021-04-27 08:29 | MHC.CM.PN ---
PATIENT IS INDEPENDENT WITH HER ADLS. BARIATRIC PATIENT WHO IS DISCHARGED TODAY SHE IS ABLE TO SECURE TRANSPORTATION. RN AWARE OF PLAN.
--- NOTE | 2021-04-27 10:14 | HO.POSTANES ---
Post Anesthesia Evaluation Post Anesthesia Evaluation Vital Signs: Vital Signs Temp Pulse Resp BP Pulse Ox 04/27/21 07:13 97.0 F 87 18 119/71 100 04/27/21 04:00 98.1 F 69 18 148/74 H 98 04/26/21 23:52 98.1 F 75 18 143/70 H 97 Anesthesia: General Mental Status: Awake Pain Control: Satisfactory Nausea/Vomiting: None Hydration: Adequate Anesthesia-Related Issues: No Anes. Related Issues
== END 2021-04-27 08:45 | disposition home or self-care (01) | DRG 621 ==
LOC: HO.SSSA 09:58 → HO.S3 10:30
PROVIDERS: Physician Assistant; Admitting Provider Surgery; PCP Internal Medicine; Visit Provider Surgery
PROC: 0DB64Z3 Excision of Stomach, Percutaneous Endoscopic Approach, Vertical (ICD-10-PCS; CPT 43845; principal; 2021-04-26 07:30)
DX: E66.01 Morbid (severe) obesity due to excess calories (principal); K76.0 Fatty (change of) liver, not elsewhere classified; K66.0 Peritoneal adhesions (postprocedural) (postinfection); E03.9 Hypothyroidism, unspecified; I10 Essential (primary) hypertension; E11.51 Type 2 diabetes mellitus with diabetic peripheral angiopathy without gangrene; I87.2 Venous insufficiency (chronic) (peripheral); K74.00 Hepatic fibrosis, unspecified; Z68.31 Body mass index [BMI] 31.0-31.9, adult; Z20.822 Contact with and (suspected) exposure to COVID-19; Z87.891 Personal history of nicotine dependence; Z79.899 Other long term (current) drug therapy
CPT/HCPCS: 36415; 80048; 80053; 80061; 82947; 83036; 83525; 84439; 84443; 85014; 85018; 85025; 85610; 85730; 86140; 86850; 86900; 86901; 87635; 88307; 88342; 99024; A4649; J0131; J0690; J1100; J1170; J2250; J2370; J2405; J2550; J2765; J3010

== ENCOUNTER → 2021-05-02 07:31 | Outpatient (BNVA) | payer OTHER, SELFPAY | PROVIDERS: PCP Internal Medicine; Visit Provider Surgery ==

== ENCOUNTER → 2021-06-13 07:20 | Outpatient (BNVA) | payer OTHER, SELFPAY | PROVIDERS: PCP Internal Medicine; Visit Provider Surgery ==

== ENCOUNTER → 2021-07-22 08:28 | Outpatient (BNVA) | payer OTHER, SELFPAY | PROVIDERS: PCP Internal Medicine; Visit Provider Surgery ==

== ENCOUNTER → 2021-08-12 08:05 | Outpatient (BNVA) | payer OTHER, SELFPAY | PROVIDERS: PCP Internal Medicine; Visit Provider Surgery ==

== ENCOUNTER → 2021-09-30 12:51 | Outpatient (BNVA) | payer OTHER, SELFPAY | PROVIDERS: PCP Internal Medicine; Visit Provider Physician Assistant Surgical ==

== ENCOUNTER 2021-11-11 09:20 | Outpatient (REF) | payer OTHER, SELFPAY ==
[2021-11-11 10:17] LABS: MANUAL DIFF FLAG NO
[2021-11-11 10:34] LABS: Basophils Percent Auto 0.5 % (0-2); Eosinophils Absolute Auto 0.4 X10*3/uL (0.0-0.4); Eosinophils Percent Auto 6.4 % (0-4); Hematocrit 41.3 % (37.0-47.0); Imm Gran Abs Auto 0.01 X10*3/uL (0.00-0.03); Imm Gran Pct Auto 0.2 % (0.0-0.4); Lymphocytes Percent Auto 36.8 % (20-40); Mean Corpuscular HGB Conc 33.9 g/dl (31.0-35.0); Mean Corpuscular Volume 85.7 fL (80.0-98.0); Mean Platelet Volume 10.1 fL (9.4-12.3); Monocytes Absolute Auto 0.4 X10*3/uL (0.1-1.2); Monocytes Percent Auto 6.9 % (2-11); Neutrophils Absolute Auto 2.7 x10*3/uL (2.0-8.3); Neutrophils Percent Auto 49.2 % (45-73); Platelet Count 186 X10*3/uL (160-400); Red Blood Count 4.82 X10*6/uL (4.20-5.50); Red Cell Distribution Width 12.4 % (11.0-16.0); White Blood Count 5.5 X10*3/uL (4.8-10.8)
[2021-11-11 11:16] LABS: Estimated Average Glucose 88 mg/dL; Hemoglobin A1c % 4.7 %
[2021-11-11 11:42] LABS: Anion Gap 12 (12-20); Blood Urea Nitrogen 18 mg/dL (9-16); C Reactive Protein 0.11 mg/dL (< or = 0.50); Calcium 10.1 mg/dL (8.4-10.2); Carbon Dioxide 31 mmol/L (22-29); Chloride 105 mmol/L (96-108); Cholesterol 189 mg/dL; Estimated Glomerular Filt Rate > 60; Glucose Random 107 mg/dL (60-115); HDL Cholesterol 66 mg/dL; Iron 89 mcg/dL (30-160); LDL Cholesterol Calculated 104 mg/dl; Percent Iron Saturation 29 % (15-50); Potassium 4.8 mmol/L (3.3-5.1); Sodium 143 mmol/L (135-145); Total Iron Binding Capacity 304 mcg/dL (228-428); Triglycerides 95 mg/dL; Unsaturated Iron Binding 215 ug/dL
[2021-11-11 12:14] LABS: Folate > 20.0 ng/mL (> or = 4.0); Vitamin B12 662 pg/mL (200-900)
[2021-11-11 12:22] LABS: Ferritin 342 ng/mL (10-250); TSH reflex Free T4 0.61 uIU/mL (0.32-4.0); Vitamin D 25-OH Total 41.9 ng/mL (>30)
[2021-11-14 14:52] LABS: Calcium (PTHI) 9.6 mg/dL (8.6-10.4); PTHI 46 pg/mL (14-64)
[2021-11-15 16:11] LABS: Zinc 85 mcg/dL (60-130)
[2021-11-16 17:46] LABS: Vitamin B1 11 nmol/L (8-30)
[2021-11-17 01:17] LABS: Vitamin A 52 mcg/dL (38-98)
== END 2021-11-11 09:21 | disposition home or self-care (01) ==
LOC: HO.LAB 09:20
PROVIDERS: PCP Internal Medicine; Visit Provider Physician Assistant Surgical
DX: E66.3 Overweight (principal); Z68.26 Body mass index [BMI] 26.0-26.9, adult; Z98.84 Bariatric surgery status
CPT/HCPCS: 36415; 80048; 80061; 82306; 82607; 82728; 82746; 83036; 83540; 83970; 84425; 84443; 84590; 84630; 85025; 86140

== ENCOUNTER → 2022-02-10 08:05 | Outpatient (BNVA) | payer OTHER, SELFPAY | PROVIDERS: PCP Internal Medicine; Visit Provider Physician Assistant Surgical | DX: E66.3 Overweight (principal); Z98.84 Bariatric surgery status ==

== ENCOUNTER 2022-04-21 09:12 | Outpatient (REF) | payer OTHER, SELFPAY ==
[2022-04-21 09:45] LABS: MANUAL DIFF FLAG NO
[2022-04-21 10:09] LABS: Basophils Percent Auto 0.6 % (0-2); Eosinophils Absolute Auto 0.1 X10*3/uL (0.0-0.4); Eosinophils Percent Auto 1.8 % (0-4); Hematocrit 41.6 % (37.0-47.0); Hemoglobin 14.3 g/dl (12.0-16.0); Imm Gran Abs Auto 0.01 X10*3/uL (0.00-0.03); Imm Gran Pct Auto 0.2 % (0.0-0.4); Lymphocytes Absolute Auto 1.5 X10*3/uL (1.2-4.9); Lymphocytes Percent Auto 29.5 % (20-40); Mean Corpuscular HGB Conc 34.4 g/dl (31.0-35.0); Mean Corpuscular Hemoglobin 28.9 pg (27.0-33.0); Mean Corpuscular Volume 84.2 fL (80.0-98.0); Mean Platelet Volume 9.7 fL (9.4-12.3); Monocytes Absolute Auto 0.4 X10*3/uL (0.1-1.2); Monocytes Percent Auto 8.1 % (2-11); Neutrophils Percent Auto 59.8 % (45-73); Platelet Count 181 X10*3/uL (160-400); Red Blood Count 4.94 X10*6/uL (4.20-5.50); Red Cell Distribution Width 12.6 % (11.0-16.0)
[2022-04-21 10:28] LABS: Hemoglobin A1C 88.9821 umol/L
[2022-04-21 10:29] LABS: Estimated Average Glucose 77 mg/dL; Hemoglobin A1c % 4.3 %
[2022-04-21 10:46] LABS: Anion Gap 12 (12-20); Blood Urea Nitrogen 13 mg/dL (9-16); C Reactive Protein 0.12 mg/dL (< or = 0.50); Calcium 9.5 mg/dL (8.4-10.2); Carbon Dioxide 30 mmol/L (22-29); Chloride 106 mmol/L (96-108); Cholesterol 169 mg/dL; Estimated Glomerular Filt Rate > 60; Glucose Random 86 mg/dL (60-115); HDL Cholesterol 64 mg/dL; Iron 72 mcg/dL (30-160); LDL Cholesterol Calculated 93 mg/dl; Percent Iron Saturation 25 % (15-50); Potassium 5.3 mmol/L (3.3-5.1); Sodium 143 mmol/L (135-145); Total Iron Binding Capacity 291 mcg/dL (228-428); Triglycerides 62 mg/dL; Unsaturated Iron Binding 219 ug/dL
[2022-04-21 11:11] LABS: Ferritin 303 ng/mL (10-250); TSH reflex Free T4 0.46 uIU/mL (0.32-4.0)
[2022-04-21 11:14] LABS: Folate > 20.0 ng/mL (> or = 4.0); Vitamin B12 657 pg/mL (200-900)
[2022-04-21 11:55] LABS: Insulin 4 uU/mL (2-29)
[2022-04-26 09:17] LABS: Zinc 84 mcg/dL (60-130)
[2022-04-26 15:50] LABS: Vitamin B1 20 nmol/L (8-30)
[2022-04-26 22:42] LABS: Calcium (PTHI) 9.5 mg/dL (8.6-10.4); PTHI 56 pg/mL (16-77)
[2022-04-27 13:21] LABS: Vitamin A 47 mcg/dL (38-98)
== END 2022-04-21 09:13 | disposition home or self-care (01) ==
LOC: HO.LAB 09:12
PROVIDERS: PCP Internal Medicine; Visit Provider Physician Assistant Surgical
DX: E66.3 Overweight (principal)
CPT/HCPCS: 36415; 80048; 80061; 82306; 82607; 82728; 82746; 83036; 83525; 83540; 83970; 84425; 84443; 84590; 84630; 85025; 86140

== ENCOUNTER → 2022-11-03 08:48 | Outpatient (BNVA) | payer OTHER, SELFPAY | PROVIDERS: PCP Internal Medicine; Visit Provider Physician Assistant Surgical | DX: Z13.89 Encounter for screening for other disorder (principal) ==

== ENCOUNTER 2023-05-11 08:16 | Outpatient (AMB) | payer SELFPAY ==
--- NOTE | 2023-05-11 08:19 | MHC.OFFVISWM ---
Intake VS Expanded 05/11/23 08:20 Height 5 ft 8 in Weight 203 lb 9.6 oz BMI 31.0 BP 157/67 H Blood Pressure Location Lt brachial Blood Pressure Position Sitting Pulse 65 Pulse Source Pulse Oximeter Temp 97.9 F Temperature Source Temporal Artery Scan Pulse Oximetry 100 Oxygen Delivery Method Room Air Body Fat 70.8 Body Fat Percentage 34.8 Free Fat Mass 132.8 Muscle Mass 126.2 Visceral Mass 9.0 Water Mass 94.2 BMR 1,791 Comment 2nd b/p 159/79 Intake Visit Reasons: (OV) PO LSG 04/26/21 Oracle Drm Consultant Required: No Allergies No Known Allergies Allergy (Verified 05/11/23 08:21) Medication List - Last Reconciled 05/11/23 by DOREEN Steven cholecalciferol (vitamin D3) 25 mcg PO DAILY lisinopril 10 mg PO DAILY yegtndmopgtu-uxi-gppv-FA-vit K 45 mg iron- 800 mcg-120 mcg (Bariatric Multivitamins) caps PO HPI HPI Comments History of Present Illness Details This?a?58?yo female who is s/p LSG without hiatal hernia repair on?04/26/21. Presents for 2 year post op visit. Weight today is 203.6 pounds, with a BMI of 30.9.? There has been a 36.8 pound weight loss,(initial weight 240.4 pounds) since starting the program on 08/06/20 reflecting a 15.3% total body weight loss and a weight loss of 1 pound since surgery (operative weight 204.6 pounds).? No complaints of nausea, emesis, abdominal pain or reflux. Reports infrequent but normal bowel movements every 1-2 days and uses stool softeners regularly. She states she has fallen off track due to the holidays. Present meal plan includes: 2 scoop premier protein in 8 oz almond milk w 1/2 a montserratian yogurt and strawberries, 36 gm protein skip lunch or rice cake w protein PB apple protein and veg, not measuring Drinking 98? oz water ? Exercise routine includes: swimming 80 laps daily, walking outside 2 miles. 2 x per week and bike 20 miles on weekend? [facility] Medical History Adjustment disorder, unspecified BMI 32.0-32.9,adult COVID-19 vaccine series completed Diabetes mellitus Hypertension Hyperthyroidism Liver fibrosis Obesity Steatosis, liver Vascular insufficiency Venous insufficiency Surgical History History of sleeve gastrectomy History of surgery on right wrist Hx laparoscopic cholecystectomy Family History Father AAA (abdominal aortic aneurysm) Stroke Aortic valve replaced Mother Narcolepsy Lung cancer Breast cancer DM (diabetes mellitus) Sister HTN (hypertension) Obese Sister DM (diabetes mellitus) HTN (hypertension) Obese Social History Are you a primary aged or disabled care worker to a significant other at home: No Do you presently have visiting nurse or other home services: No Alcohol intake: former Patient Tobacco Use Status: Former Tobacco user Quit Date: 2008 Tobacco use type: Cigarette Physical Exam Vital Signs: Last Vital Signs Temp 97.9 F 05/11/23 08:20 Pulse 65 05/11/23 08:20 BP 157/67 H 05/11/23 08:20 Pulse Ox 100 05/11/23 08:20 Oxygen Delivery Method Room Air 05/11/23 08:20 BMI result Body Mass Index 31.0 Const General: cooperative and no acute distress Orientation/consciousness: patient oriented x3 Resp Effort & Inspection: normal respiratory effort Auscultation: clear to auscultation bilaterally Cardio Rate: regular rate Rhythm: regular rhythm GI Inspection: Yes normal to inspection and Yes incision (well healed) Palpation (GI): Soft to palpation and no masses Neuro General: patient oriented x3 Assessment & Plan Assessment & Plan (1) Obesity: Code(s): E66.9 - Obesity, unspecified Plan: labs shake-2 scoops meal x 2 6 forks/6 forks, 7 forks/7 forks rtc 6 months Orders: Orders Vitamin B12 and Folate Today E66.9 - Obesity, unspecified, I10 - Essential (primary) hypertension, Z98.84 - Bariatric surgery status Basic Metabolic Panel Today E66.9 - Obesity, unspecified, I10 - Essential (primary) hypertension, Z98.84 - Bariatric surgery status C Reactive Protein Today E66.9 - Obesity, unspecified, I10 - Essential (primary) hypertension, Z98.84 - Bariatric surgery status Ferritin Today E66.9 - Obesity, unspecified, I10 - Essential (primary) hypertension, Z98.84 - Bariatric surgery status Hemoglobin A1c Today E66.9 - Obesity, unspecified, I10 - Essential (primary) hypertension, Z98.84 - Bariatric surgery status Insulin Today E66.9 - Obesity, unspecified, I10 - Essential (primary) hypertension, Z98.84 - Bariatric surgery status IRON PROFILE Today E66.9 - Obesity, unspecified, I10 - Essential (primary) hypertension, Z98.84 - Bariatric surgery status Lipid Panel Today E66.9 - Obesity, unspecified, I10 - Essential (primary) hypertension, Z98.84 - Bariatric surgery status PTHI Today E66.9 - Obesity, unspecified, I10 - Essential (primary) hypertension, Z98.84 - Bariatric surgery status TSH reflex Free T4 Today E66.9 - Obesity, unspecified, I10 - Essential (primary) hypertension, Z98.84 - Bariatric surgery status Vitamin A Today E66.9 - Obesity, unspecified, I10 - Essential (primary) hypertension, Z98.84 - Bariatric surgery status Vitamin B1 Today E66.9 - Obesity, unspecified, I10 - Essential (primary) hypertension, Z98.84 - Bariatric surgery status Vitamin D 25-OH Total Today E66.9 - Obesity, unspecified, I10 - Essential (primary) hypertension, Z98.84 - Bariatric surgery status Zinc Today E66.9 - Obesity, unspecified, I10 - Essential (primary) hypertension, Z98.84 - Bariatric surgery status Complete Blood Count Auto Diff Today E66.9 - Obesity, unspecified, I10 - Essential (primary) hypertension, Z98.84 - Bariatric surgery status Coding Level of Care Code Est Pt Level 3 (31576) Diagnoses Obesity E66.9
[2023-05-11 08:20] VITALS: BP 157/67; PULSE 65; TEMP 36.6; O2SAT 100; BMI 31.0
== END 2023-05-11 11:13 | disposition home or self-care (01) ==
PROVIDERS: Visit Provider Physician Assistant Surgical
DX: E66.9 Obesity, unspecified (principal); Z68.31 Body mass index [BMI] 31.0-31.9, adult; Z90.3 Acquired absence of stomach [part of]; Z98.84 Bariatric surgery status
CPT/HCPCS: 99214

== ENCOUNTER → 2023-05-11 08:16 | Outpatient (BNVA) | payer OTHER, SELFPAY | PROVIDERS: Visit Provider Physician Assistant Surgical ==

== ENCOUNTER 2023-06-18 09:09 | Outpatient (REF) | payer OTHER, SELFPAY ==
[2023-06-18 09:25] LABS: MANUAL DIFF FLAG NO
[2023-06-18 10:05] LABS: Basophils Percent Auto 0.5 % (0-2); Eosinophils Absolute Auto 0.2 X10*3/uL (0.0-0.4); Eosinophils Percent Auto 2.7 % (0-4); Hematocrit 40.4 % (37.0-47.0); Hemoglobin 13.5 g/dl (12.0-16.0); Imm Gran Abs Auto 0.01 X10*3/uL (0.00-0.03); Imm Gran Pct Auto 0.2 % (0.0-0.4); Lymphocytes Absolute Auto 1.8 X10*3/uL (1.2-4.9); Lymphocytes Percent Auto 33.3 % (20-40); Mean Corpuscular HGB Conc 33.4 g/dl (31.0-35.0); Mean Corpuscular Hemoglobin 28.8 pg (27.0-33.0); Mean Corpuscular Volume 86.1 fL (80.0-98.0); Mean Platelet Volume 10.4 fL (9.4-12.3); Monocytes Absolute Auto 0.4 X10*3/uL (0.1-1.2); Monocytes Percent Auto 6.5 % (2-11); Neutrophils Absolute Auto 3.1 x10*3/uL (2.0-8.3); Neutrophils Percent Auto 56.8 % (45-73); Platelet Count 201 X10*3/uL (160-400); Red Blood Count 4.69 X10*6/uL (4.20-5.50); Red Cell Distribution Width 13.1 % (11.0-16.0); White Blood Count 5.5 X10*3/uL (4.8-10.8)
[2023-06-18 10:13] LABS: Estimated Average Glucose 85 mg/dL; Hemoglobin A1c % 4.6 % (<6.0)
[2023-06-18 10:48] LABS: Anion Gap 13 (12-20); Blood Urea Nitrogen 19 mg/dL (9-16); C Reactive Protein < 0.10 mg/dL (< or = 0.50); Calcium 9.6 mg/dL (8.4-10.2); Carbon Dioxide 30 mmol/L (22-29); Chloride 106 mmol/L (96-108); Cholesterol 191 mg/dL (<200); Estimated Glomerular Filt Rate > 60; Glucose Random 88 mg/dL (60-115); HDL Cholesterol 56 mg/dL (>40); Iron 73 mcg/dL (30-160); LDL Cholesterol Calculated 107 mg/dL (<100); Percent Iron Saturation 26 % (15-50); Potassium 4.8 mmol/L (3.3-5.1); Sodium 144 mmol/L (135-145); Total Iron Binding Capacity 280 mcg/dL (228-428); Triglycerides 144 mg/dL (<150); Unsaturated Iron Binding 207 ug/dL
[2023-06-18 11:10] LABS: Ferritin 133 ng/mL (10-250); Insulin 8 uU/mL (2-29); TSH reflex Free T4 1.03 uIU/mL (0.32-4.0); Vitamin D 25-OH Total > 154.2 ng/mL (>30)
[2023-06-18 11:12] LABS: Folate 18.3 ng/mL (> or = 4.0); Vitamin B12 824 pg/mL (200-900)
[2023-06-19 16:43] LABS: Calcium (PTHI) 9.7 mg/dL (8.6-10.4); PTHI 47 pg/mL (16-77)
[2023-06-22 00:40] LABS: Zinc 103 mcg/dL (60-130)
[2023-06-22 18:53] LABS: Vitamin A 62 mcg/dL (38-98)
[2023-06-23 09:18] LABS: Vitamin B1 14 nmol/L (8-30)
== END 2023-06-18 09:10 | disposition home or self-care (01) ==
LOC: HO.LAB 09:09
PROVIDERS: PCP Physician Assistant Surgical; Visit Provider Physician Assistant Surgical
DX: E66.9 Obesity, unspecified (principal); I10 Essential (primary) hypertension; Z98.84 Bariatric surgery status
CPT/HCPCS: 36415; 80048; 80061; 82306; 82607; 82728; 82746; 83036; 83525; 83540; 83970; 84425; 84443; 84590; 84630; 85025; 86140

== ENCOUNTER 2024-02-22 08:09 | Outpatient (AMB) | payer OTHER, SELFPAY ==
--- NOTE | 2024-02-22 08:23 | A.OFFVIS_ITS ---
VS Expanded 02/22/24 08:32 BP 147/74 H Blood Pressure Location Rt brachial Blood Pressure Position Sitting Pulse 78 Pulse Source Pulse Oximeter Temp 96.4 F L Temperature Source Temporal Artery Scan Pulse Oximetry 97 Oxygen Delivery Method Room Air Height 5 ft 8 in Weight 181 lb 3.2 oz BMI 27.5 Body Fat % 29.8 Body Fat Mass 54.0 Fat Free Mass 127.0 Visceral Fat Rating 7.0 Body Water % 49.8 Body Water Mass 90.2 Muscle Mass/Score 120.6 Basal Metabolic Rate/Score 1,688 Intake Visit Reasons: (OV) PO LSG 04/26/21 Curatorial Assistant Required: No Allergies No Known Allergies Allergy (Verified 02/22/24 08:32) Medication List - Last Reconciled 02/22/24 by DOREEN Steven cholecalciferol (vitamin D3) 25 mcg PO DAILY lisinopril 10 mg PO DAILY tnwxjvuzjkta-vvs-kful-FA-vit K 45 mg iron- 800 mcg-120 mcg (Bariatric Multivitamins) caps PO HPI Comments Details: This?a?59?yo female who is s/p LSG without hiatal hernia repair on?04/26/21. Presents for 2 year 10 month post op visit. Weight today is 181.2 pounds, with a BMI of 27.5.? There has been a 59.2 pound weight loss,(initial weight 240.4 pounds) since starting the program on 08/06/20 reflecting a 24.6% total body weight loss and a weight loss of 23.4 pound since surgery (operative weight 204.6 pounds) reflecting a 11.4 % TBWL since surgery.? No complaints of nausea, emesis, abdominal pain or reflux. Reports infrequent but normal bowel movements every 1-2 days and uses stool softeners regularly. Regarding her blood pressure, she states her blood pressure at home is typically 120s over 60s to 70s. She states that she is taking her lisinopril 10 mg daily although only 2-3 times per week when she remembers. We talked about checking her blood pressure readings twice daily for a couple of weeks to determine if she in fact still needs her lisinopril. She does not endorse lightheadedness. Present meal plan includes: 2 scoop premier protein in 8 oz almond milk meal 6 forks protein and 6 forks veg meal 7 forks protein and 7 forks veg Drinking 96? oz water ? Exercise routine includes: swimming 5 x per week 1.5-2 miles each, walking outside 2 miles. 4 x per week w 20 pound bag on back and bike 10 miles on weekend? PFSH Medical History Venous insufficiency Liver fibrosis Steatosis, liver Hyperthyroidism COVID-19 vaccine series completed BMI 32.0-32.9,adult Adjustment disorder, unspecified Obesity Vascular insufficiency Hypertension Diabetes mellitus Surgical History History of sleeve gastrectomy History of surgery on right wrist Hx laparoscopic cholecystectomy Family History Father AAA (abdominal aortic aneurysm) Stroke Aortic valve replaced Mother Narcolepsy Lung cancer Breast cancer DM (diabetes mellitus) Sister HTN (hypertension) Obese Sister DM (diabetes mellitus) HTN (hypertension) Obese Social History Are you a primary care connector to a significant other at home: No Do you presently have visiting nurse or other home services: No Alcohol intake: former Patient Tobacco Use Status: Former Tobacco user Quit Date: 2008 Tobacco use type: Cigarette Physical Exam Const General: healthy appearing and no acute distress Resp Effort & Inspection: normal respiratory effort Auscultation: clear to auscultation bilaterally Cardio Rate: regular rate Rhythm: regular rhythm GI Auscultation: normal bowel sounds Extrem General: Yes normal to inspection Assessment & Plan Assessment & Plan (1) S/P laparoscopic sleeve gastrectomy: Code(s): Z98.84 - Bariatric surgery status Category: Surgical Plan: Overall, patient has done excellent. She is extremely active and continues to lose weight. She will continue her current meal plan. She did come to the office fasting today and we will check 3 year follow-up labs a little early. Luz Marina garner will return to the office for her 3 year follow-up in April. Regarding her blood pressure, she has been encouraged to check her blood pressure twice daily for 1-2 weeks and send me the measurements so we can determine the continued need for her lisinopril 10 mg daily which she is noncompliant with. She is taking this perhaps 2-3 times per week. Orders: Orders Hemoglobin A1c Today Lipid Panel Today Zinc Today C Reactive Protein Today Vitamin B1 Today Vitamin A Today Basic Metabolic Panel Today Insulin Today Complete Blood Count Auto Diff Today IRON PROFILE Today Vitamin B12 and Folate Today TSH reflex Free T4 Today Ferritin Today Vitamin D 25-OH Total Today
[2024-02-22 08:32] VITALS: BP 147/74; PULSE 78; TEMP 35.8; O2SAT 97; BMI 27.5
== END 2024-02-22 09:04 | disposition home or self-care (01) ==
PROVIDERS: PCP Internal Medicine; Visit Provider Physician Assistant Surgical
DX: E66.3 Overweight (principal); Z68.27 Body mass index [BMI] 27.0-27.9, adult; Z90.3 Acquired absence of stomach [part of]; Z98.84 Bariatric surgery status
CPT/HCPCS: 99214

== ENCOUNTER 2024-02-22 08:09 | Outpatient (REF) | payer OTHER, SELFPAY ==
[2024-02-22 09:15] LABS: MANUAL DIFF FLAG NO
[2024-02-22 09:24] LABS: Basophils Percent Auto 0.8 % (0-2); Eosinophils Absolute Auto 0.2 X10*3/uL (0.0-0.4); Eosinophils Percent Auto 4.5 % (0-4); Hematocrit 40.6 % (37.0-47.0); Hemoglobin 13.9 g/dl (12.0-16.0); Imm Gran Abs Auto 0.02 X10*3/uL (0.00-0.03); Imm Gran Pct Auto 0.4 % (0.0-0.4); Lymphocytes Absolute Auto 1.6 X10*3/uL (1.2-4.9); Lymphocytes Percent Auto 30.9 % (20-40); Mean Corpuscular HGB Conc 34.2 g/dl (31.0-35.0); Mean Corpuscular Hemoglobin 29.4 pg (27.0-33.0); Mean Platelet Volume 9.8 fL (9.4-12.3); Monocytes Absolute Auto 0.4 X10*3/uL (0.1-1.2); Neutrophils Absolute Auto 2.9 x10*3/uL (2.0-8.3); Neutrophils Percent Auto 56.4 % (45-73); Platelet Count 180 X10*3/uL (160-400); Red Blood Count 4.72 X10*6/uL (4.20-5.50); Red Cell Distribution Width 12.8 % (11.0-16.0); White Blood Count 5.2 X10*3/uL (4.8-10.8)
[2024-02-22 09:32] LABS: Estimated Average Glucose 82 mg/dL; Hemoglobin A1c % 4.5 % (<6.0)
[2024-02-22 09:38] LABS: Anion Gap 13 (12-20); Blood Urea Nitrogen 16 mg/dL (9-16); C Reactive Protein 0.11 mg/dL (< or = 0.50); Calcium 9.9 mg/dL (8.4-10.2); Carbon Dioxide 26 mmol/L (22-29); Chloride 107 mmol/L (96-108); Cholesterol 186 mg/dL (<200); Estimated Glomerular Filt Rate > 60; Glucose Random 90 mg/dL (60-115); HDL Cholesterol 61 mg/dL (>40); Iron 72 mcg/dL (30-160); LDL Cholesterol Calculated 104 mg/dL (<100); Percent Iron Saturation 26 % (15-50); Potassium 4.1 mmol/L (3.3-5.1); Sodium 142 mmol/L (135-145); Total Iron Binding Capacity 275 mcg/dL (228-428); Triglycerides 105 mg/dL (<150); Unsaturated Iron Binding 203 ug/dL
[2024-02-22 10:01] LABS: Ferritin 184 ng/mL (10-250)
[2024-02-22 10:35] LABS: Insulin 6 uU/mL (2-29)
[2024-02-22 11:11] LABS: Folate 18.2 ng/mL (> or = 4.0); Vitamin B12 635 pg/mL (200-900)
[2024-02-26 06:43] LABS: Zinc 77 mcg/dL (60-130)
[2024-02-26 19:53] LABS: Vitamin A 50 mcg/dL (38-98)
[2024-03-02 11:14] LABS: Vitamin B1 7 nmol/L (8-30)
== END 2024-02-22 08:10 | disposition home or self-care (01) ==
LOC: HO.LAB 08:09
PROVIDERS: PCP Internal Medicine; Visit Provider Physician Assistant Surgical
DX: E66.9 Obesity, unspecified (principal); Z98.84 Bariatric surgery status; I10 Essential (primary) hypertension
CPT/HCPCS: 36415; 80048; 80061; 82306; 82607; 82728; 82746; 83036; 83525; 83540; 84425; 84443; 84590; 84630; 85025; 86140

== ENCOUNTER 2025-05-13 12:07 | Outpatient (REF) | payer BC, SELFPAY ==
[2025-05-13 12:26] LABS: MANUAL DIFF FLAG NO
--- OUTSIDE RECORDS SUMMARY | 2025-05-13 12:45 | XMS_ITS | Encounter Summary ---
Author Organization [facility] Address [address] [place] [phone] Phone Care Team Providers Care Fitness Technician Name Role Phone Pcp, Unknown Primary Care Provider Unavailabl e Danna Camarena MD Unavailable [phone] Danna Camarena MD Primary Care Provider Danna Camarena MD Unavailable Isabelle Curiel DO Unavailable Encounter Details Date Type Department Care Team (Late st Contact Info) Description 12/01/2020 Transcribe Orders [facility] [address] [place] [address] [id number] Pcp, Unknown Social History Tobacco Use Types Packs/Day Years Used Date Smoking Tobacco: Never Assessed Comments Unknown Sex and Gender Information Value Date Recorded Sex Assigned at Not on file Legal Sex Female 9:39 PM EDT Gender Identity Not on file Sexual Orientation Not on file documented as of this encounter Plan of Treatment Not on file documented as of this encounter Visit Diagnoses Not on filedocumented in this encounter Care Teams Fitness Technician Relationship Specialty Start Date End Date Pcp, Unknown PCP - General 10/21/19 12/05/20 Danna Camarena MD [address] [place] [address] [email or web address] PCP - General Internal Medicine 12/06/20 Danna Camarena MD [address] [place] [address] [email or web address] Insurance Assigned Provider 02/25/20 12/05/20 Danna Camarena MD [address] [place] [id number] Insurance Assigned Provider 02/25/20 07/28/23 Isabelle Curiel DO [address] [place] [id number] Insurance Assigned Provider 05/02/25 documented as of this encounter Additional Source Comments The information contained in this document represents components of the legal health record. It is not the complete legal health record[facility]
--- OUTSIDE RECORDS SUMMARY | 2025-05-13 12:45 | XMS_ITS | Encounter Summary ---
Author Organization [employer] Address [address] [place] [address] Care Team Providers Care Marble Carver Name Role Phone Isabelle Curiel DO Primary Care Provider [phone] Reason for Referral * Consultation (Routine) - Pending Review Specialty Diagnoses / Procedures Referred By Destiny hernandez Referred To Contact Gastroenterology Diagnoses Positive FIT (fecal immunochemical test) Isabelle Curiel DO [address] [place] [address] Phone: tel: fax: [facility] [address] [place] [id number] Phone: tel: fax: Referral ID Status Reason Start Date Expiration Date Visits Requested Visits Authorized [id number] Pending Review Specialty Services Required 04/15/2025 04/15/2026 1 1 Encounter Details Date Type Department Care Team (Late st Contact Info) Description 04/15/2025 Results Follow-Up [facility] MED[facility] [address] [place] [address] Isabelle Curiel DO [address] [place] [address] Cologuard colon cancer screening Social History Tobacco Use Types Packs/Day Years Used Date Smoking Tobacco: Former Cigarettes 1 10 Q uit: 03/06/2005 Smokeless Tobacco: Never Alcohol Use Standard Drinks/Week Comments Yes 1 (1 standard drink = 0.6 oz pur e alcohol) rarely Alcohol Answer Date Recorded How often do you have a drink containing alcohol ? 1 03/06/2025 How many drinks containing a lcohol do you have on a typical day when you are drinking? 0 03/06/2025 How often do you have six or more drinks on one occasion? 0 03/06/2025 Housing Stability Answer Date Recorded What is your housing situation today? I have renetta briseno 03/06/[address] you li ve. Do you have problems with any of the following? None of the above 03/06/2025 Food Insecurity Answer Date Recorded Within the past 12 months, y ou worried that your food would run out before you got money to buy more: Never True 03/06/2025 Within the past 12 months,th e food you bought just didn't last and you didn't have enough money to get more: Never True Transportation Answer Date Recorded In the past 12 months, has l ack of transportation kept you from medical appts, meetings, work or from getting things needed for daily living? No 03/06/2025 Utilities Answer Date Recorded In the past 12 months, has t he electric, gas, oil or water company threatened to shut off services in your home? No 03/06/2025 Depression Answer Date Recorded Patient Health Questionnaire-2 Score 0 03/06/2025 Internet Access Answer Date Recorded Internet Access Q1 Yes 03/06/2025 Internet Access Q2 Not on file 03/06/2025 Comments Unknown Sex and Gender Information Value Date Recorded Sex Assigned at Female 07/02/2024 2:14 PM EDT Legal Sex Female 2:12 PM EDT Gender Identity Female 07/02/2024 2:14 PM EDT Sexual Orientation Straight 07/02/2024 2: 16 PM EDT documented as of this encounter Plan of Treatment Scheduled Referrals Name Type Priority Associated Diagnoses Orde r Schedule Referral to Gastroenterology Outpatient Referral Routine Positive FIT (fecal immunochemical test) Expected: 04/15/2025 (Approximate), Expires: 04/15/2026 documented as of this encounter Visit Diagnoses Diagnosis Positive FIT (fecal immunochemical test)- Primary documented in this encounter Care Teams Marble Carver Relationship Specialty Start Date End Date Isabelle Curiel DO [address] [place] [id number] PCP - General Family Medicine 07/02/24 documented as of this encounter
[2025-05-13 12:54] LABS: Hematocrit 38.2 % (37.0-47.0); Hemoglobin 13.9 g/dl (12.0-16.0); Imm Gran Abs Auto 0.01 X10*3/uL (0.00-0.03); Imm Gran Pct Auto 0.2 % (0.0-0.4); Lymphocytes Absolute Auto 1.4 X10*3/uL (1.2-4.9); Mean Corpuscular HGB Conc 36.4 g/dl (31.0-35.0); Mean Corpuscular Hemoglobin 30.3 pg (27.0-33.0); Mean Corpuscular Volume 83.2 fL (80.0-98.0); NRBC Abs Auto 0.000 X10*3/uL (0.0-0.012); NRBC Pct Auto 0.0 /100WBC (0.0-0.2); Platelet Count 175 X10*3/uL (160-400); Red Blood Count 4.59 X10*6/uL (4.20-5.50); White Blood Count 4.5 X10*3/uL (4.8-10.8)
[2025-05-13 13:04] LABS: Hemoglobin A1C 84.9320 umol/L; Total Hemoglobin (HGBA1C) 3589.8029 umol/L
[2025-05-13 14:12] LABS: Alanine Aminotransferase 20 U/L (0-31); Albumin Level 4.3 g/dL (3.5-5.0); Alkaline Phosphatase 55 U/L (39-117); Anion Gap 9 (12-20); Aspartate Amino Transferase 26 U/L (5-31); Blood Urea Nitrogen 17 mg/dL (9-16); Calcium 9.4 mg/dL (8.4-10.2); Carbon Dioxide 29 mmol/L (22-29); Chloride 107 mmol/L (96-108); Cholesterol 158 mg/dL (<200); Estimated Glomerular Filt Rate > 60; HDL Cholesterol 59 mg/dL (>40); Potassium 4.2 mmol/L (3.3-5.1); Sodium 141 mmol/L (135-145); Total Protein 7.3 g/dL (6.5-8.0); Triglycerides 99 mg/dL (<150)
== END 2025-05-13 12:08 | disposition home or self-care (01) ==
LOC: HO.LAB 12:07
PROVIDERS: PCP Family Medicine; Visit Provider Family Medicine
DX: I10 Essential (primary) hypertension (principal); E11.9 Type 2 diabetes mellitus without complications
CPT/HCPCS: 36415; 80053; 80061; 83036; 85025